=== PATIENT | male | born 1975 | race Caucasian/White ===

== ENCOUNTER 2018-04-03 10:43 | Emergency (ER) | payer OTHER, BC ==
[~2018-04-03] VITALS: Ht 177.8 cm; Wt 81.6 kg
[~2018-04-03 10:43] MED LIST: BUSPAR10 MG PO; CYMBALTA60 MG PO; ZOFRAN ODT8 MG PO
[2018-04-03] MEDS ORDERED: BACLOFEN10 MG PO (12:39)
[2018-04-03] MEDS ORDERED: MOTRIN800 MG PO (12:39)
[2018-04-03] MEDS ORDERED: LIDODERM 5% P1 PATCH TD (12:39)
[2018-04-03 12:51] VITALS: BP 142/74
== END 2018-04-03 12:55 | disposition home or self-care (01) ==
LOC: EME 10:43
DX: S39.012A Strain of muscle, fascia and tendon of lower back, initial encounter (principal); M51.36 Other intervertebral disc degeneration, lumbar region; X50.9XXA Other and unspecified overexertion or strenuous movements or postures, initial encounter; Y93.89 Activity, other specified; Y99.0 Civilian activity done for income or pay; Z87.891 Personal history of nicotine dependence; Z90.49 Acquired absence of other specified parts of digestive tract
CPT/HCPCS: 72100; 99281; 99283; J1885